=== PATIENT | female | born 2005 | race Caucasian/White ===

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

== ENCOUNTER → 2023-01-31 | Outpatient (CLI) | payer MEDICAID, OTHER ==
[~2023-01-31] MED LIST changes: +ACET-897 PO; +BUSP15TA47 PO; +IBUP80TA PO; +PERCOCET PO; +TUMS750C5 PO
== END ==
LOC: M WHC 10:19
PROVIDERS: ATTEND Advanced Practice Midwife
DX: Z34.82 Encounter for supervision of other normal pregnancy, second trimester (principal); Z3A.28 28 weeks gestation of pregnancy

== ENCOUNTER 2023-02-12 18:44 | Emergency (ER) | payer OTHER, MEDICAID ==
[~2023-02-12 18:44] MED LIST changes: -ACET-897 PO; -BUSP15TA47 PO; -IBUP80TA PO; -PERCOCET PO; -TUMS750C5 PO
[2023-02-12 18:46] VITALS: TEMP 97.6; O2SAT 99
[2023-02-12 18:57] VITALS: BP 180/100
== END 2023-02-12 19:08 | disposition admitted as inpatient to this hospital (09) ==
LOC: M ED 18:44
DX: Z53.21 Procedure and treatment not carried out due to patient leaving prior to being seen by health care provider (principal)

== ENCOUNTER 2023-02-12 19:05 | Outpatient (CLI) | payer OTHER, MEDICAID ==
[2023-02-12 20:14] VITALS: BP 124/69; TEMP 97.2
[2023-02-12 20:49] LABS: HEMATOCRIT 38.1 % (36.0-47.0); HEMOGLOBIN 12.8 g/dl (12.0-15.5); MEAN CORPUSCULAR HEMOGLOBIN 26.9 pg (27.0-33.0); MEAN CORPUSCULAR HGB CONC 33.6 g/dl (32.0-36.5); PLATELET COUNT, AUTOMATED 334 10^3/uL (150-450); RED BLOOD COUNT 4.76 10^6/uL (4.00-5.40); WHITE BLOOD COUNT 10.8 10^3/uL (4.0-10.0)
[2023-02-12 20:54] VITALS: BP 176/114
[2023-02-12 20:55] VITALS: BP 184/121
[2023-02-12 21:01] VITALS: BP 146/84
[2023-02-12 21:05] LABS: URIC ACID 6.8 MG/DL (3.1-7.8)
[2023-02-12 21:07] LABS: LDH LACTATE DEHYDROGENASE 160 U/L (120-246)
[2023-02-12 21:08] LABS: ALT/SGPT 32 U/L (7.0-40); AST/SGOT 23 U/L (<34); BILIRUBIN,TOTAL 0.2 MG/DL (0.3-1.2); CREATININE FOR GFR 0.55 MG/DL (0.55-1.30)
[2023-02-12 21:26] LABS: TOTAL PROTEIN,RANDOM URINE 363.4 MG/DL (0.0-14.0)
[2023-02-12 21:55] VITALS: BP 136/80
[2023-02-12 22:24] VITALS: BP 146/84
[2023-02-12 22:41] LABS: AMORPHOUS SEDIMENT MODERATE (NEGATIVE); APPEARANCE, URINE TURBID (CLEAR); BACTERIA, URINE AUTO 1+ (NEGATIVE); BILIRUBIN, URINE AUTO NEGATIVE (NEGATIVE); BLOOD, URINE BLOOD NEGATIVE (NEGATIVE); CALCIUM OXALATE CRYSTALS SMALL; COLOR, URINE AMBER (YELLOW); GLUCOSE, URINE (UA) AUTO NEGATIVE (NEGATIVE); KETONE, URINE AUTO NEGATIVE (NEGATIVE); LEUKOCYTE ESTERASE, URINE AUTO NEGATIVE (NEGATIVE); MUCUS, URINE LARGE (NEGATIVE); NITRITE, URINE AUTO NEGATIVE (NEGATIVE); PROTEIN, URINE AUTO 3+ mg/dL (NEGATIVE); RBC, URINE AUTO 10 /HPF (0-3); SPECIFIC GRAVITY URINE AUTO 1.035 (1.002-1.035); SQUAMOUS EPITHELIAL CELL UR AU 7 /HPF (0-6); WBC, URINE AUTO 20 /HPF (0-3)
[2023-02-12] MEDS ORDERED: NITROFURANTOIN (MACROBID) 100 MG CAP PO ONE (22:45)
== END 2023-02-12 23:00 | disposition home or self-care (01) ==
LOC: M LDO 19:05
PROVIDERS: ATTEND Advanced Practice Midwife
DX: O12.13 Gestational proteinuria, third trimester (principal); O26.893 Other specified pregnancy related conditions, third trimester; O23.43 Unspecified infection of urinary tract in pregnancy, third trimester; M54.50 Low back pain, unspecified; W18.2XXA Fall in (into) shower or empty bathtub, initial encounter; Y93.9 Activity, unspecified; Y99.9 Unspecified external cause status; Z3A.29 29 weeks gestation of pregnancy
CPT/HCPCS: 36415; 59025; 81001; 82247; 82570; 83615; 84156; 84450; 84460; 84550; 85027; G0463

== ENCOUNTER → 2023-03-04 | Outpatient (CLI) | payer OTHER, MEDICAID ==
[2023-03-04 14:58] LABS: HEMATOCRIT 41.4 % (36.0-47.0); HEMOGLOBIN 13.7 g/dl (12.0-15.5); MEAN CORPUSCULAR HEMOGLOBIN 26.6 pg (27.0-33.0); MEAN CORPUSCULAR HGB CONC 33.1 g/dl (32.0-36.5); MEAN CORPUSCULAR VOLUME 80.2 fl (80.0-96.0); PLATELET COUNT, AUTOMATED 327 10^3/uL (150-450); RED BLOOD COUNT 5.16 10^6/uL (4.00-5.40)
[2023-03-04 15:03] LABS: URIC ACID 7.2 MG/DL (3.1-7.8)
[2023-03-04 15:05] LABS: LDH LACTATE DEHYDROGENASE 180 U/L (120-246)
[2023-03-04 15:06] LABS: ALT/SGPT 33 U/L (7.0-40); AST/SGOT 28 U/L (<34); BILIRUBIN,TOTAL 0.3 MG/DL (0.3-1.2); CREATININE FOR GFR 0.68 MG/DL (0.55-1.30)
[2023-03-04 15:46] LABS: CREATININE,RANDOM URINE 417.9 MG/DL; TOTAL PROTEIN,RANDOM URINE 1815.7 MG/DL (0.0-14.0)
== END ==
LOC: M PLALAB 10:15
PROVIDERS: ATTEND Obstetrics & Gynecology
DX: O16.9 Unspecified maternal hypertension, unspecified trimester (principal); Z3A.00 Weeks of gestation of pregnancy not specified

== ENCOUNTER 2023-03-06 02:04 | Inpatient (IN) | payer OTHER, MEDICAID ==
[~2023-03-06] VITALS: Ht 152.4 cm; Wt 99.4 kg
[2023-03-06] VITALS (34 sets, daily range): BP systolic 119–163; BP diastolic 64–119; TEMP 97.9; O2SAT 95–100
[2023-03-06] MEDS ORDERED: OXYTOCIN DRIP 30 UNITS in IV 1 EA IV PRN ×4 (02:45)
[2023-03-06] MEDS ORDERED: PENICILLIN G POTASSIUM 5 MU IV 5 MU in D5W MINI-BAG PLUS 100 ML IV STA (02:45)
[2023-03-06] MEDS ORDERED: LABETALOL 100MG/20ML VIAL IV ONE (02:45)
[2023-03-06] MEDS ORDERED: MAG Sulf (OBGYN) 20GM/500ML 20,000 MG in IV 1 EA IV SCH (02:45)
[2023-03-06] MEDS ORDERED: TRANEXAMIC ACID INJection 1,000 MG in NS 100 ML IV PRN (02:45)
[2023-03-06] MEDS ORDERED: CARBOPROST TROMETHAMINE 250 MCG/ML AMP IM PRN (02:45)
[2023-03-06] MEDS ORDERED: OXYTOCIN INJ 10UNITS/ML 1ML VIAL IM PRN (02:45)
[2023-03-06] MEDS ORDERED: MAG Sulf (L&D) 4 GM/100 ML 4 GM in IV 1 EA IV ONE (02:45)
[2023-03-06] MEDS ORDERED: CALCIUM GLUCONATE 1,000 MG in D5W MINI-BAG PLUS 100 ML IV PRN (02:45)
[2023-03-06] MEDS ORDERED: LIDOCAINE 1% MDV 20ML VIAL INFIL PRN (02:45)
[2023-03-06] MEDS ORDERED: BETAMETHASONE SOLUSPAN 6MG/ML 5ML VIAL IM SCH (03:00)
[2023-03-06 03:42] LABS: HEMATOCRIT 39.8 % (36.0-47.0); HEMOGLOBIN 13.6 g/dl (12.0-15.5); MEAN CORPUSCULAR HEMOGLOBIN 27.1 pg (27.0-33.0); MEAN CORPUSCULAR HGB CONC 34.2 g/dl (32.0-36.5); MEAN CORPUSCULAR VOLUME 79.3 fl (80.0-96.0); PLATELET COUNT, AUTOMATED 233 10^3/uL (150-450); RED BLOOD COUNT 5.02 10^6/uL (4.00-5.40); WHITE BLOOD COUNT 14.1 10^3/uL (4.0-10.0)
[2023-03-06 03:45] LABS: URIC ACID 7.5 MG/DL (3.1-7.8)
[2023-03-06 03:47] LABS: LDH LACTATE DEHYDROGENASE 316 U/L (120-246)
[2023-03-06] MEDS ORDERED: LABETALOL 100MG/20ML VIAL IV STA (03:56)
[2023-03-06 04:19] LABS: ALT/SGPT 77 U/L (7.0-40); AST/SGOT 74 U/L (<34); BILIRUBIN,TOTAL 0.5 MG/DL (0.3-1.2); CREATININE FOR GFR 0.71 MG/DL (0.55-1.30)
[2023-03-06 04:38] LABS: CREATININE,RANDOM URINE 260.5 MG/DL
[2023-03-06] MEDS ORDERED: ceFAZolin SOD 2 GM in IV 1 EA IV ONE ×2 (06:15→06:20)
[2023-03-06] MEDS ORDERED: BICITRA 30ML SOLN UDC PO ONE ×2 (06:15→06:20)
[2023-03-06 06:18] LABS: HIV 1&2 SCREEN NEGATIVE (NEGATIVE)
[2023-03-06] MEDS ORDERED: LACTATED RINGER'S 1000 ML IV STA (06:18)
[2023-03-06] MEDS ORDERED: LR 1,000 ML IV SCH (06:20)
[2023-03-06 06:25] LABS: HEPATITIS C VIRUS ABY INDEX 0.04 INDEX (<0.8)
[2023-03-06] MEDS ORDERED: PEN G POT 3,000,000 UNIT/50 ML 3,000,000 UNIT in IV 1 EA IV SCH (06:45)
[2023-03-06] MEDS ORDERED: KETOROLAC 60MG 2ML VIAL As Ordered ONE (07:00)
[2023-03-06] MEDS ORDERED: OXYTOCIN INJ 10UNITS/ML 1ML VIAL As Ordered ONE (07:00)
[2023-03-06] MEDS ORDERED: ONDANSETRON 4MG 2ML VIAL As Ordered ONE (07:00)
[2023-03-06] MEDS ORDERED: MORPHINE PRES-FREE INJ 10 MG/10 ML VIAL As Ordered ONE (07:00)
[2023-03-06] MEDS ORDERED: METOCLOPRAMIDE INJ 10MG/2ML VIAL As Ordered ONE (07:00)
[2023-03-06] MEDS ORDERED: OXYTOCIN 30UNITS IN 0.9% NaCl 500ML IV BAG As Ordered ONE ×2 (07:00→07:59)
[2023-03-06 07:06] LABS: CHLAMYDIA DNA AMPLIFICATION NEGATIVE (NEGATIVE); GC DNA AMPLIFICATION NEGATIVE (NEGATIVE)
[2023-03-06] MEDS ORDERED: PHENYLephrine 500MCG 5ML (100MCG/ML) SYRINGE As Ordered ONE (07:22)
[2023-03-06] MEDS ORDERED: MIDAZOLAM INJ 2MG/2ML VIAL As Ordered ONE (07:27)
[2023-03-06 07:28] LABS: CORD GAS ABE V -2.5; CORD GAS HCO3 V 23.3 MMOL/L; CORD GAS O2 SAT V 43.7 %; CORD GAS PCO2 V 43.4 mmHg; CORD GAS PH V 7.347 UNITS; CORD GAS PO2 V 19.3 mmHg; CORD GAS SBC V 20.9 MMOL/L; CORD GAS TCO2 V 24.6 MMOL/L
[2023-03-06 07:39] LABS: CORD GAS ABE A -4.6; CORD GAS HCO3 A 22.7 MMOL/L; CORD GAS O2 SAT A 68.5 %; CORD GAS PCO2 A 49.6 mmHg; CORD GAS PH A 7.278 UNITS; CORD GAS PO2 A 29.3 mmHg; CORD GAS SBC A 19.9 MMOL/L; CORD GAS TCO2 A 24.2 MMOL/L
[2023-03-06] MEDS ORDERED: RHOGAM 300MCG (1500IU) INJ IM SCH (07:50)
[2023-03-06] MEDS ORDERED: ONDANSETRON 4MG TAB PO PRN (07:50)
[2023-03-06] MEDS ORDERED: SIMETHICONE 80MG CHEW TAB PO PRN (07:50)
[2023-03-06] MEDS ORDERED: OXYTOCIN DRIP 30 UNITS in IV 1 EA IV SCH (07:50)
[2023-03-06] MEDS: MAG Sulf (OBGYN) 20GM/500ML 20,000 MG in IV 1 EA IV SCH ×2 (08:04→15:20)
[2023-03-06] MEDS: LR 1,000 ML IV SCH ×3 (08:04→21:22)
[2023-03-06] MEDS: PRENATAL VITAMINS CHEWABLE TABLET PO SCH (09:00)
[2023-03-06] MEDS ORDERED: fentaNYL 100 MCG/2 ML INJECTION As Ordered ONE (09:44)
[2023-03-06] MEDS ORDERED: PERCOCET 5MG/325MG TAB PO ONE (10:35)
[2023-03-06] MEDS ORDERED: **NOTE PATIENT COMMENT** MISC XX SCH (10:35)
[2023-03-06] MEDS ORDERED: ONDANSETRON 4MG 2ML VIAL IV PRN (10:35)
[2023-03-06] MEDS ORDERED: NALOXONE INJ 0.4MG/1ML VIAL IV PRN ×2 (10:35)
[2023-03-06] MEDS ORDERED: METOCLOPRAMIDE INJ 10MG/2ML VIAL IV PRN (10:35)
[2023-03-06] MEDS: diphenhydrAMINE 50MG/ML VIAL IV PRN ×2 (10:59→19:18)
[2023-03-06] MEDS ORDERED: ACET-897 PO (13:38)
[2023-03-06] MEDS ORDERED: TUMS750C5 PO (13:42)
[2023-03-06] MEDS ORDERED: BUSP15TA47 PO (13:42)
[2023-03-06] MEDS ORDERED: HOME MED LIST COMPLETE! XX SCH (13:45)
[2023-03-06] MEDS: KETOROLAC 30 MG/ML 1ML VIAL IV SCH ×2 (13:49→19:18)
[2023-03-06] MEDS: SLF 3 ML SYR IV SCH ×2 (14:59→18:35)
[2023-03-06] MEDS: busPIRone 5 MG TAB PO SCH (20:22)
[2023-03-07 02:15] VITALS: BP 150/91; O2SAT 97
[2023-03-07] MEDS: KETOROLAC 30 MG/ML 1ML VIAL IV SCH (02:17)
[2023-03-07] MEDS: SLF 3 ML SYR IV SCH (02:35)
[2023-03-07 06:00] VITALS: BP 152/88; O2SAT 97
[2023-03-07] MEDS: PERCOCET 5MG/325MG TAB PO PRN ×2 (06:16→12:29)
[2023-03-07 07:16] LABS: HEMATOCRIT 34.2 % (36.0-47.0); MEAN CORPUSCULAR HEMOGLOBIN 27.3 pg (27.0-33.0); MEAN CORPUSCULAR HGB CONC 33.6 g/dl (32.0-36.5); PLATELET COUNT, AUTOMATED 208 10^3/uL (150-450); RED BLOOD COUNT 4.22 10^6/uL (4.00-5.40); WHITE BLOOD COUNT 14.9 10^3/uL (4.0-10.0)
[2023-03-07 07:41] LABS: HEMOGLOBIN 11.5 g/dl (12.0-15.5)
[2023-03-07] MEDS: LR 1,000 ML IV SCH (07:50)
[2023-03-07] MEDS: PRENATAL VITAMINS CHEWABLE TABLET PO SCH (09:18)
[2023-03-07] MEDS: busPIRone 5 MG TAB PO SCH ×2 (09:19→20:19)
[2023-03-07] MEDS: IBUPROFEN 800 MG TAB PO SCH ×2 (09:19→17:36)
[2023-03-07 10:00] VITALS: BP 143/92; O2SAT 98
[2023-03-07 14:00] VITALS: BP 144/82; O2SAT 97
[2023-03-07 18:00] VITALS: BP 157/94; O2SAT 97
[2023-03-07 22:40] VITALS: BP 148/92; O2SAT 98
[2023-03-08] MEDS: IBUPROFEN 800 MG TAB PO SCH ×2 (01:18→10:19)
[2023-03-08] MEDS: PERCOCET 5MG/325MG TAB PO PRN ×2 (01:19→07:58)
[2023-03-08 02:11] VITALS: BP 138/84; O2SAT 97
[2023-03-08 06:00] VITALS: BP 142/80; O2SAT 96
[2023-03-08] MEDS: PRENATAL VITAMINS CHEWABLE TABLET PO SCH (07:48)
[2023-03-08] MEDS: busPIRone 5 MG TAB PO SCH (08:03)
[2023-03-08] MEDS ORDERED: MEASLES,MUMPS,RUBELLA VACCINE INJ (MMR-II) SC.IMMUN ONE (09:00)
[2023-03-08] MEDS ORDERED: INFLUENZA QUADRIVALENT PF VACCINE 0.5ML SYRINGE IM.IMMUN ONE (09:00)
[2023-03-08] MEDS ORDERED: IBUP80TA PO (09:55)
[2023-03-08] MEDS ORDERED: PERCOCET PO (09:55)
[2023-03-08 10:00] VITALS: BP 150/85; O2SAT 96
[2023-03-08 10:53] LABS: HEMATOCRIT 36.6 % (36.0-47.0); HEMOGLOBIN 11.8 g/dl (12.0-15.5); MEAN CORPUSCULAR HEMOGLOBIN 26.5 pg (27.0-33.0); MEAN CORPUSCULAR HGB CONC 32.2 g/dl (32.0-36.5); MEAN CORPUSCULAR VOLUME 82.1 fl (80.0-96.0); PLATELET COUNT, AUTOMATED 212 10^3/uL (150-450); RED BLOOD COUNT 4.46 10^6/uL (4.00-5.40); WHITE BLOOD COUNT 11.4 10^3/uL (4.0-10.0)
[2023-03-08 11:16] LABS: URIC ACID 7.2 MG/DL (3.1-7.8)
[2023-03-08 11:18] LABS: LDH LACTATE DEHYDROGENASE 235 U/L (120-246)
[2023-03-08 11:49] LABS: ALT/SGPT 52 U/L (7.0-40); AST/SGOT 33 U/L (<34); BILIRUBIN,TOTAL 0.2 MG/DL (0.3-1.2); CREATININE FOR GFR 0.63 MG/DL (0.55-1.30)
== END 2023-03-08 14:45 | disposition home or self-care (01) | DRG 788 ==
LOC: M LDO 02:04 → M LDI 02:46 → M OBS 15:13
PROVIDERS: ADMIT Advanced Practice Midwife; ATTEND Specialist
PROC: 10D00Z1 Extraction of Products of Conception, Low, Open Approach (ICD-10-PCS; principal; 2023-03-06 06:18)
DX: O14.24 HELLP syndrome, complicating childbirth (principal); O13.4 Gestational [pregnancy-induced] hypertension without significant proteinuria, complicating childbirth; O24.420 Gestational diabetes mellitus in childbirth, diet controlled; Z37.0 Single live birth; Z3A.33 33 weeks gestation of pregnancy

== ENCOUNTER → 2023-12-05 | Outpatient (CLI) | payer OTHER, MEDICAID ==
[~2023-12-05] MED LIST changes: +ACET-897 PO; +BUSP15TA47 PO; +IBUP80TA PO; +PERCOCET PO; +TUMS750C5 PO
[2023-12-05 17:55] LABS: BASO # 0.1 10^3/uL (0.0-0.2); BASO % 0.5 % (0.0-1.0); EOS # 0.2 10^3/uL (0.0-0.5); EOS % 1.5 % (0.0-3.0); HEMATOCRIT 40.8 % (36.0-47.0); LYMPH # 4.6 10^3/uL (1.5-5.0); LYMPH % 35.3 % (24.0-44.0); MEAN CORPUSCULAR HGB CONC 31.9 g/dl (32.0-36.5); MEAN CORPUSCULAR VOLUME 78.3 fl (80.0-96.0); MONO # 0.5 10^3/uL (0.0-0.8); MONO % 3.7 % (2.0-8.0); NEUTROPHILS # 7.7 10^3/uL (1.5-8.5); NEUTROPHILS % 58.7 % (36.0-66.0); PLATELET COUNT, AUTOMATED 489 10^3/uL (150-450); RED BLOOD COUNT 5.21 10^6/uL (4.00-5.40); WHITE BLOOD COUNT 13.2 10^3/uL (4.0-10.0)
[2023-12-05 18:07] LABS: ALBUMIN 3.7 G/DL (3.2-5.2); ALKALINE PHOSPHATASE 100 U/L (46-116); ALT/SGPT 54 U/L (7.0-40); AST/SGOT 23 U/L (<34); BILIRUBIN,TOTAL 0.3 MG/DL (0.3-1.2); BLOOD UREA NITROGEN 10 MG/DL (9-23); CALCIUM LEVEL 9.8 MG/DL (8.5-10.1); CARBON DIOXIDE LEVEL 27 MMOL/L (20-31); CHLORIDE LEVEL 108 MMOL/L (98-107); CHOLESTEROL LEVEL 183 MG/DL (<200); CHOLESTEROL RISK RATIO 5.84 (<5); CREATININE FOR GFR 0.59 MG/DL (0.55-1.30); GLUCOSE, FASTING 85 MG/DL (60-100); HDL CHOLESTEROL 31.3 MG/DL (>40); LDL CHOLESTEROL 112.1 MG/DL (<100); NON-HDL-C 151.7 MG/DL; POTASSIUM SERUM 4.6 MMOL/L (3.5-5.1); SODIUM LEVEL 140 MMOL/L (136-145); TOTAL PROTEIN 7.3 G/DL (5.7-8.2); TRIGLYCERIDES LEVEL 198 MG/DL (<150)
[2023-12-05 18:11] LABS: THYROID STIMULATING HORMONE 1.237 uIU/ML (0.48-4.17)
[2023-12-05 18:12] LABS: FREE T4 1.24 NG/DL (0.83-1.43)
[2023-12-05 18:23] LABS: HEMOGLOBIN A1c 5.8 % (4.0-6.0)
== END ==
LOC: M PLALAB 14:39
PROVIDERS: ATTEND Nurse Practitioner Family
DX: R42 Dizziness and giddiness (principal); E55.9 Vitamin D deficiency, unspecified; Z86.32 Personal history of gestational diabetes; Z13.220 Encounter for screening for lipoid disorders

== ENCOUNTER → 2023-12-12 | Outpatient (REF) | payer OTHER, MEDICAID ==
[2023-12-12 13:41] LABS: AMORPHOUS SEDIMENT MODERATE (NEGATIVE); APPEARANCE, URINE TURBID (CLEAR); BACTERIA, URINE AUTO 2+ (NEGATIVE); BILIRUBIN, URINE AUTO NEGATIVE (NEGATIVE); BLOOD, URINE BLOOD 1+ (NEGATIVE); CALCIUM OXALATE CRYSTALS SMALL; COLOR, URINE AMBER (YELLOW); GLUCOSE, URINE (UA) AUTO NEGATIVE (NEGATIVE); KETONE, URINE AUTO NEGATIVE (NEGATIVE); LEUKOCYTE ESTERASE, URINE AUTO 2+ (NEGATIVE); MUCUS, URINE LARGE (NEGATIVE); NITRITE, URINE AUTO NEGATIVE (NEGATIVE); PROTEIN, URINE AUTO 1+ mg/dL (NEGATIVE); RBC, URINE AUTO 17 /HPF (0-3); SPECIFIC GRAVITY URINE AUTO 1.028 (1.002-1.035); SQUAMOUS EPITHELIAL CELL UR AU 8 /HPF (0-6); UROBILINOGEN, URINE AUTO 0.2 mg/dL (0.0-2.0); WBC, URINE AUTO 25 /HPF (0-3)
== END ==
LOC: M SFHCPLAZ 12:39
PROVIDERS: ATTEND Nurse Practitioner Family
DX: R39.9 Unspecified symptoms and signs involving the genitourinary system (principal)

== ENCOUNTER → 2024-01-26 | Outpatient (CLI) | payer OTHER, MEDICAID ==
[2024-01-26 13:27] LABS: BASO # 0.1 10^3/uL (0.0-0.2); BASO % 0.7 % (0.0-1.0); EOS # 0.7 10^3/uL (0.0-0.5); EOS % 5.8 % (0.0-3.0); HEMATOCRIT 43.3 % (36.0-47.0); HEMOGLOBIN 13.7 g/dl (12.0-15.5); LYMPH # 4.5 10^3/uL (1.5-5.0); LYMPH % 36.2 % (24.0-44.0); MEAN CORPUSCULAR HEMOGLOBIN 25.4 pg (27.0-33.0); MEAN CORPUSCULAR HGB CONC 31.6 g/dl (32.0-36.5); MEAN CORPUSCULAR VOLUME 80.3 fl (80.0-96.0); MONO # 0.6 10^3/uL (0.0-0.8); MONO % 4.6 % (2.0-8.0); NEUTROPHILS # 6.4 10^3/uL (1.5-8.5); NEUTROPHILS % 52.5 % (36.0-66.0); PLATELET COUNT, AUTOMATED 448 10^3/uL (150-450); RED BLOOD COUNT 5.39 10^6/uL (4.00-5.40); WHITE BLOOD COUNT 12.3 10^3/uL (4.0-10.0)
[2024-01-26 13:33] LABS: ERYTHROCYTE SEDIMENTATION RATE 71 mm/hr (0-20)
[2024-01-26 13:50] LABS: RHEUMATOID FACTOR QUANT 5.8 IU/ML (<14)
[2024-01-28 08:23] LABS: ANA SCREEN, IFA NEGATIVE (NEGATIVE)
== END ==
LOC: M PLALAB 11:29
PROVIDERS: ATTEND Nurse Practitioner Family
DX: M25.561 Pain in right knee (principal); R93.6 Abnormal findings on diagnostic imaging of limbs

== ENCOUNTER → 2024-06-08 | Outpatient (CLI) | payer OTHER, MEDICAID ==
[2024-06-08 15:35] LABS: APPEARANCE, URINE CLEAR (CLEAR); BACTERIA, URINE AUTO NEGATIVE (NEGATIVE); BILIRUBIN, URINE AUTO NEGATIVE (NEGATIVE); BLOOD, URINE BLOOD NEGATIVE (NEGATIVE); COLOR, URINE STRAW (YELLOW); GLUCOSE, URINE (UA) AUTO NEGATIVE (NEGATIVE); KETONE, URINE AUTO NEGATIVE (NEGATIVE); LEUKOCYTE ESTERASE, URINE AUTO NEGATIVE (NEGATIVE); MUCUS, URINE SMALL (NEGATIVE); NITRITE, URINE AUTO NEGATIVE (NEGATIVE); PROTEIN, URINE AUTO NEGATIVE (NEGATIVE); RBC, URINE AUTO 0 /HPF (0-3); SPECIFIC GRAVITY URINE AUTO 1.012 (1.002-1.035); SQUAMOUS EPITHELIAL CELL UR AU 1 /HPF (0-6); UROBILINOGEN, URINE AUTO 0.2 mg/dL (0.0-2.0); WBC, URINE AUTO 0 /HPF (0-3)
[2024-06-08 20:00] LABS: BASO # 0.1 10^3/uL (0.0-0.2); BASO % 0.6 % (0.0-1.0); EOS # 0.2 10^3/uL (0.0-0.5); EOS % 1.7 % (0.0-3.0); HEMATOCRIT 42.9 % (36.0-47.0); HEMOGLOBIN 13.6 g/dl (12.0-15.5); LYMPH # 4.8 10^3/uL (1.5-5.0); MEAN CORPUSCULAR HEMOGLOBIN 25.4 pg (27.0-33.0); MEAN CORPUSCULAR HGB CONC 31.7 g/dl (32.0-36.5); MONO # 0.7 10^3/uL (0.0-0.8); MONO % 5.4 % (2.0-8.0); NEUTROPHILS # 7.8 10^3/uL (1.5-8.5); NEUTROPHILS % 57.1 % (36.0-66.0); PLATELET COUNT, AUTOMATED 529 10^3/uL (150-450); RED BLOOD COUNT 5.36 10^6/uL (4.00-5.40); WHITE BLOOD COUNT 13.7 10^3/uL (4.0-10.0)
[2024-06-08 20:19] LABS: ALBUMIN 3.6 G/DL (3.2-5.2); ALKALINE PHOSPHATASE 100 U/L (35-104); ALT/SGPT 31 U/L (7.0-40); AST/SGOT 11 U/L (<34); BILIRUBIN,TOTAL 0.2 MG/DL (0.3-1.2); BLOOD UREA NITROGEN 10 MG/DL (9-23); CALCIUM LEVEL 9.3 MG/DL (8.5-10.1); CARBON DIOXIDE LEVEL 25 MMOL/L (20-31); CHLORIDE LEVEL 105 MMOL/L (98-107); CHOLESTEROL LEVEL 177 MG/DL (<200); CREATININE FOR GFR 0.57 MG/DL (0.55-1.30); GLOMERULAR FILTRATION RATE > 60.0 (>60); GLUCOSE, FASTING 92 MG/DL (60-100); HDL CHOLESTEROL 38.4 MG/DL (>40); LDL CHOLESTEROL 110.6 MG/DL (<100); NON-HDL-C 138.6 MG/DL; POTASSIUM SERUM 4.6 MMOL/L (3.5-5.1); SODIUM LEVEL 141 MMOL/L (136-145); TOTAL PROTEIN 7.5 G/DL (5.7-8.2); TRIGLYCERIDES LEVEL 140 MG/DL (<150)
[2024-06-08 20:22] LABS: THYROID STIMULATING HORMONE 2.175 uIU/ML (0.55-4.78)
[2024-06-08 20:27] LABS: FREE T4 1.12 NG/DL (0.89-1.76)
[2024-06-08 20:38] LABS: HEMOGLOBIN A1c 5.6 % (4.0-6.0)
[2024-06-11 02:36] LABS: T P ELECTROPHORESIS SO 7.3 g/dL (6.1-8.1)
[2024-06-14 08:02] LABS: ALBUMIN SPEP 4.1 g/dL (3.8-4.8); ALPHA-1-GLOBULINS SO 0.3 g/dL (0.2-0.3); BETA 2 GLOBULIN 0.4 g/dL (0.2-0.5); BETA-GLOBULIN SO 0.5 g/dL (0.4-0.6); GAMMA GLOBULINS SO 1.1 g/dL (0.8-1.7)
== END ==
LOC: M PLALAB 14:27
PROVIDERS: ATTEND Nurse Practitioner Family
DX: E78.2 Mixed hyperlipidemia (principal); R39.9 Unspecified symptoms and signs involving the genitourinary system; D75.839 Thrombocytosis, unspecified; R73.03 Prediabetes; F32.9 Major depressive disorder, single episode, unspecified; D72.829 Elevated white blood cell count, unspecified